=== PATIENT | male | born 1930 | race Caucasian/White ===

== ENCOUNTER → 2017-12-24 | Outpatient (CLI) | payer OTHER ==
[~2017-12-24] MED LIST: ACCUPRIL; ADULT LOW DOSE81 MG PO; ALLOPURINOL; ALLOPURINOL 10100 M1 PO; AMBIEN 5 MG TABL5 MG PO; BENICAR40 MG PO; BYSTOLIC 5 MG5 M1 PO; BYSTOLIC10 MG PO; CENTRUM SILVER1 EAC2 PO; FISHOIL; FLOMAX0.4 MG PO; GLUCOTROL5 MG PO; HCTZ; K-DUR 20 MEQ T20 MEQ PO; KLOR-CON20 MEQ PO; LIDOPATCH1 EACH TRANSDERM; LIPITOR; LIPITOR40 MG PO; MAGOX 400400 MG PO; MIRALAX17 GM PO; NITROGLYCERIN0.4 MG SUBLING; NORVASC2.5 MG PO; NORVASC5 MG PO; OLMESARTAN-HCT1 EAC2 PO; OMEPRAZOLE 20 M20 M1 PO; PACERONE 200 M200 M1 PO; PRILOSEC 20 MG20 MG PO; SYNTHROID100 MC1 PO; SYNTHROID75 MCG PO; TOPROL XL25 MG PO; TYLENOL325 MG PO; VENTOLIN HFA 1818 GM INH; VITAMINC500 PO
== END ==
LOC: CAT 12-16 08:12
DX: R51 Headache (principal)